=== PATIENT | male | born 1990 | race Caucasian/White ===

== ENCOUNTER 2019-12-25 20:54 | Inpatient (IN) | payer MEDICAID ==
[~2019-12-25] VITALS: Ht 188 cm; Wt 218.2 kg
[2019-12-25] MEDS ORDERED: ONDANSETRON HCL 4MG/2ML INJ IV STA (22:28)
[2019-12-25] MEDS ORDERED: KETOROLAC 30MG/ML VIAL IV STA (22:28)
[2019-12-25] MEDS ORDERED: HYDROCODONE/ACETAMINOPHEN 5/325MG TABLET PO STA (22:28)
[2019-12-25] MEDS ORDERED: SODIUM CHLORIDE 0.9% 1000ML BAG (SEPSIS BOLUS) IV ONE (22:30)
[2019-12-25] MEDS ORDERED: PIPERACILLIN/TAZ 3.375G PREMIX 50 ML IV ONE (22:30)
[2019-12-25] MEDS ORDERED: VANCOMYCIN 1 G PREMIX 200 ML IV ONE (22:30)
[2019-12-25 22:46] LABS: BASOPHILS % 0.2 % (0.0-2.0); HEMOGLOBIN. 14.1 g/dL (14.0-18.0); MEAN CORPUSCULAR HEMOGLOBIN 29.4 pg (28.0-32.0); MEAN CORPUSCULAR VOLUME 85.7 fL (80.0-94.0); MEAN PLATELET VOLUME 9.6 fl (7.4-10.4); MONOCYTES % 7.2 % (2.0-8.0); NEUTROPHILS % 82.6 % (40.0-76.0); PLATELET 168 x1000/uL (130-400); RED BLOOD CELL COUNT 4.78 mill/uL (4.7-6.1); RED CELL DISTRIBUTION WIDTH 13.2 % (11.6-14.6)
[2019-12-25 22:52] LABS: CHLORIDE 99 mEq/L (98-107)
[2019-12-25] MEDS ORDERED: ACETAMINOPHEN 650MG/20.3ML UDC PO NR (23:15)
[2019-12-26] MEDS ORDERED: FUROSEMIDE 40MG/4ML VIAL IVP ONE (04:45)
[2019-12-26 08:00] VITALS: BP 146/97
[2019-12-26 09:29] LABS: CLARITY URINE TURBID (CLEAR); COLOR URINE ORANGE (YELLOW); KETONES URINE NEGATIVE (NEGATIVE); LEUKOCYTE ESTERASE URINE 2+ (NEGATIVE); NITRITE URINE NEGATIVE (NEGATIVE); OCCULT BLOOD URINE 3+ (NEGATIVE); PROTEIN URINE 2+ (NEGATIVE); SPECIFIC GRAVITY URINE 1.024 (1.005-1.030)
[2019-12-26] MEDS: SODIUM CHLORIDE 0.9% 1,000 ML IV SCH (10:47)
[2019-12-26] MEDS ORDERED: MAGNESIUM/ALUMINUM HYDROXIDE/SIMETHICONE 30ML UDC PO PRN (11:00)
[2019-12-26] MEDS ORDERED: VANCOMYCIN 1 G PREMIX 200 ML IV SCH (11:00)
[2019-12-26] MEDS ORDERED: DIPHENHYDRAMINE 50MG/ML VIAL IV PRN (11:00)
[2019-12-26] MEDS ORDERED: ONDANSETRON HCL 4MG/2ML INJ IV PRN (11:00)
[2019-12-26] MEDS ORDERED: CLONIDINE 0.1MG TABLET PO PRN (11:00)
[2019-12-26] MEDS ORDERED: ACETAMINOPHEN 325MG TABLET PO PRN (11:00)
[2019-12-26] MEDS ORDERED: HYDROCODONE/ACETAMINOPHEN 5/325MG TABLET PO PRN (11:00)
[2019-12-26] MEDS ORDERED: KETOROLAC 30MG/ML VIAL IV PRN (11:00)
[2019-12-26 11:48] VITALS: BP 146/97
[2019-12-26 12:00] VITALS: BP 135/88
[2019-12-26] MEDS ORDERED: LEVOFLOXACIN 500MG PREMIX 100 ML IV SCH (13:00)
[2019-12-26] MEDS ORDERED: VANCOMYCIN 2,000 MG in DEXT 5% WATER 500 ML IV ONE (14:00)
[2019-12-26 16:00] VITALS: BP 139/86
[2019-12-26] MEDS ORDERED: CLINDAMYCIN 600 MG in DEXTROSE 5% WATER 50 ML IV SCH (16:15)
[2019-12-26] MEDS ORDERED: CEFTRIAXONE 2 G PREMIX 50 ML IV SCH (16:15)
[2019-12-26] MEDS ORDERED: CEFTRIAXONE 2 G in DEXTROSE 5% WATER 50 ML IV SCH (17:30)
[2019-12-26] MEDS: CLINDAMYCIN 600MG PREMIX 50 ML IV SCH (19:10)
[2019-12-26 20:00] VITALS: BP 114/64
[2019-12-26] MEDS ORDERED: ENOXAPARIN 40MG/0.4ML SYR SUBCUT SCH (21:00)
[2019-12-27] VITALS: BP 135/84
[2019-12-27] MEDS: CLINDAMYCIN 600MG PREMIX 50 ML IV SCH ×3 (02:15→18:16)
[2019-12-27 04:00] VITALS: BP 127/74
[2019-12-27] MEDS ORDERED: VANCOMYCIN 1 G PREMIX 200 ML IV SCH (04:00)
[2019-12-27 07:24] LABS: BASOPHILS % 0.3 % (0.0-2.0); EOSINOPHILS % 0.1 % (0.0-5.0); HEMATOCRIT. 38.2 % (42.0-52.0); HEMOGLOBIN. 13.1 g/dL (14.0-18.0); LYMPHOCYTES % 9.4 % (20.0-50.0); MEAN CORPUSCULAR HEMOGLOBIN 29.5 pg (28.0-32.0); MEAN CORPUSCULAR VOLUME 86.3 fL (80.0-94.0); MEAN PLATELET VOLUME 10.2 fl (7.4-10.4); MONOCYTES % 7.7 % (2.0-8.0); NEUTROPHILS % 82.5 % (40.0-76.0); PLATELET 161 x1000/uL (130-400); RED BLOOD CELL COUNT 4.43 mill/uL (4.7-6.1); RED CELL DISTRIBUTION WIDTH 13.2 % (11.6-14.6)
[2019-12-27 07:25] LABS: PHOSPHORUS 3.6 mg/dL (2.5-4.9)
[2019-12-27] MEDS: ENOXAPARIN 40MG/0.4ML SYR SUBCUT SCH ×2 (09:36→22:12)
[2019-12-27 12:00] VITALS: BP 143/84
[2019-12-27 16:00] VITALS: BP 128/54
[2019-12-27] MEDS: SODIUM CHLORIDE 0.9% 1,000 ML IV SCH (16:37)
[2019-12-27 17:04] VITALS: BP_SYST 105; BP_SYST 143; BP_DIAS 61; BP_DIAS 84
[2019-12-27 20:26] VITALS: BP 125/60
[2019-12-27] MEDS: CEFAZOLIN 2,000 MG in DEXT 5% WATER 100 ML IV SCH (23:18)
[2019-12-28] VITALS: BP 131/67
[2019-12-28] MEDS: CLINDAMYCIN 600MG PREMIX 50 ML IV SCH ×2 (03:14→10:22)
[2019-12-28] MEDS: SODIUM CHLORIDE 0.9% 1,000 ML IV SCH ×2 (03:17→12:47)
[2019-12-28 04:00] VITALS: BP 115/63
[2019-12-28 08:00] VITALS: BP 115/60
[2019-12-28] MEDS: ENOXAPARIN 40MG/0.4ML SYR SUBCUT SCH (08:55)
[2019-12-28] MEDS: CEFAZOLIN 2,000 MG in DEXT 5% WATER 100 ML IV SCH (08:55)
[2019-12-28 12:00] VITALS: BP 105/61
== END 2019-12-28 15:50 | disposition short-term general hospital (02) | DRG 720 ==
LOC: ER 20:54 → EDBEDREQ 12-26 04:50 → EDBEDREQTM 12-26 04:50 → EDBEDREQSVC 12-26 04:50 → EDBEDREQDT 12-26 04:50 → 6EST 12-26 07:07 → EDBEDREQTM 12-26 07:08 → EDBEDREQSVC 12-26 07:08 → ENRESERV 12-26 07:36
PROVIDERS: ADMIT Internal Medicine; ATTEND Internal Medicine
DX: A41.9 Sepsis, unspecified organism (principal); N17.9 Acute kidney failure, unspecified; E66.01 Morbid (severe) obesity due to excess calories; L97.929 Non-pressure chronic ulcer of unspecified part of left lower leg with unspecified severity; F17.200 Nicotine dependence, unspecified, uncomplicated; S80.822A Blister (nonthermal), left lower leg, initial encounter; X58.XXXA Exposure to other specified factors, initial encounter; I12.9 Hypertensive chronic kidney disease with stage 1 through stage 4 chronic kidney disease, or unspecified chronic kidney disease; N18.9 Chronic kidney disease, unspecified; I89.0 Lymphedema, not elsewhere classified; L03.116 Cellulitis of left lower limb; Z83.3 Family history of diabetes mellitus; Z68.44 Body mass index [BMI] 60.0-69.9, adult; Y93.89 Activity, other specified; Y92.89 Other specified places as the place of occurrence of the external cause; Y99.8 Other external cause status
CPT/HCPCS: 36415; 80048; 80053; 81003; 82962; 83036; 83605; 83735; 84100; 84145; 84484; 85025; 93005; 93970; 96365; 96375; 99291; J0690; J0696; J1650; J1885; J1956; J2405; J2543; J3370; J3490; J7030; J7040; J7060